=== PATIENT | female | born 1975 | race Caucasian/White ===

== ENCOUNTER → 2016-04-27 | Outpatient (CLI) | payer BC ==
[~2016-04-27] MED LIST: HYDR12.55 PO
--- NOTE | 2016-04-27 11:13 | DIAGNOSTIC IMAGING REPORT ---
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 COMPARISON STUDY: Upper GI series January 14, [address] of the abdomen and pelvis October 02, 2015. FLUOROSCOPY TIME: 1.5 minutes. FINDINGS: Post surgical findings consistent with Jayesh-en-Y gastric bypass are noted. The anastomosis is patent. No contrast extravasation is identified. No reflux was elicited. There is no opacification of the excluded stomach. The caliber of the opacified jejunum was normal. IMPRESSION: 1. Expected findings following Jayesh-en-Y gastric bypass. 2. No contrast extravasation. 3. No opacification of the excluded stomach. Electronically signed by: Parveen Reyes M.D. 04/27/2016 11:12 AM Dictated Date/Time: 04/27/2016 10:44 AM
== END | disposition home or self-care (01) ==
LOC: C.RAD 10:04
PROVIDERS: ATTEND Nurse Practitioner Family
DX: K91.2 Postsurgical malabsorption, not elsewhere classified (principal); Z98.84 Bariatric surgery status